=== PATIENT | female | born 1995 ===

== ENCOUNTER 2019-11-27 02:46 | Inpatient (IN) | payer BC, MEDICAID, OTHER ==
[2019-11-27] MEDS ORDERED: hydrALAZINE 20 MG/ML VIAL SLOW IVP PRN ×2 (03:28→10:38)
--- NOTE | 2019-11-27 03:44 | PDOC.FPROB ---
FMR OB H&P: HPI - History of Present Illness Chief Complaint: Contractions, Leakage of fluid Indentification: History of Present Illness: Pt is a 24 yo at 38.5 wks, ITZ 12/06/19, who presents for contractions, leakage of fluid. She states she felt a gush of fluid at midnight saturating her underwear. She has had some leakage since this initial episode. She endorsed red tinged discharge. Contractions started after leakage of fluid. Experiencing contractions between 2-8 mins and have progressively become more painful. She is scheduled for induction 12/07/19. complicated by A1GDM. 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 - Surgical History Sx History: none - Social History Social History: denies tobacco, drugs, alcohol - Family History Family History: mother - DM, HTN father- DM FMR OB H&P: Medications - Current Home Medications: Medication Instructions Recorded Confirmed Type Comb No.42/Folic Acid 1 tab PO DAILY 11/27/19 11/27/19 History [Prena1 Chewable Tablet] Allergies/Adverse Reactions: Allergies Allergy/AdvReac Type Severity Reaction Status Date / Time No Known Allergies Allergy Verified 11/27/19 03:15 FMR OB H&P: ROS - Review of Systems General: denies: fever/chills, weight/appetite/sleep changes Eyes: denies: scotomas, floaters ENT: denies: nasal congestion, rhinorrhea Cardiovascular: denies: chest pain, palpitation, edema Respiratory: denies: cough, congestion, shortness of breath Gastrointestinal: reports: cramping, constipation. denies: nausea, vomiting, diarrhea, bright red blood Genitourinary (Female): reports: vaginal discharge, contractions. denies: dysuria, hematuria Musculoskeletal: denies: pain, tenderness Neurologic: denies: numbness, weakness Integumentary: denies: itching, rash Hematologic/Lymphatic: denies: prolonged or excessive bleeding Psychological: denies: depression, anxiety FMR OB H&P: Vital Signs - Maternal Vital signs: BP 122/76 p64 - Heart Tones Variability: moderate Acceleration: present Category: category 1 FMR OB H&P: Physical Exam - Physical Exam General: NAD, awake, alert and oriented HEENT: normocephalic and atraumatic, EOMI Neck: FROM, no JVD Heart: RRR, normal S1/S2, no murmurs/rubs/gallops, pulses present, no edema General: CTAB, no respiratory distress, good air movement, no wheezing Abdomen: soft, gravid, non-tender Musculoskeletal: normal gait and station, pulses present Neurological: cranial nerves II through XII intact, sensation to pain,touch and proprioception grossly normal Skin: good tugor, capillary refill <2 seconds Lymphatic: no purpura, no petechia Psychiatric: intact recent and remote memory, good judgement and insight - Pelvic Exam SVE: /-1 FMR OB H&P: A/P - Problem List (1) Uterine contractions during Current Visit: Yes Status: Acute Code(s): O62.2 - OTHER UTERINE INERTIA (2) Gestational diabetes Current Visit: Yes Status: Acute Code(s): O24.419 - GESTATIONAL DIABETES MELLITUS IN , UNSP CONTROL (3) Intrauterine Current Visit: Yes Status: Acute Code(s): Z34.90 - ENCNTR FOR SUPRVSN OF NORMAL , UNSP, UNSP TRIMESTER Disposition: Pt is a 24 yo at 38.5 wks, ITZ 12/06/19, who presents for leakage of fluids, contractions: # SROM r/o - amnisure positive # Contractions - lucio q1-2 on monitor, painful - recheck in 2 hours to assess for change # Term IUP - , category 1 strip - Need PNC records - GBS negative # A1GDM - monitor, pt well controlled with diet. Fasting < 95; postprandial < 120. - accuchecks q4hrs Dispo: admit for labor PNC - [facility] Discussion: Date/Time: 11/27/19 0340 This H&P was discussed with Dr. Joaquin who agrees with the above documentation and plan. Addendum - Attending - Attending Attestation Date/Time: 11/27/19 0767 I personally evaluated the patient and discussed the management with Dr. Crowley. I agree with the History, Examination, Assessment and Plan documented above.
[2019-11-27 03:45] LABS: Amnisure Test RUPTURE DETECTED (No Rupture)
[2019-11-27 03:46] LABS: Amnisure Internal Control QC ACCEPTABLE (ACCEPTABLE)
[2019-11-27] MEDS ORDERED: Butorphanol Tartrate 1 MG/ML VIAL SLOW IVP PRN (03:55)
[2019-11-27] MEDS ORDERED: Docusate 100 MG CAP PO PRN (03:55)
[2019-11-27] MEDS ORDERED: Diphenoxylate HCl/Atropine Tablet PO PRN ×2 (03:58)
[2019-11-27] MEDS ORDERED: NS / Oxytocin 40 units/1000ml 1,000 ML IV PRN (03:58)
[2019-11-27] MEDS ORDERED: Misoprostol 200 MCG TAB PR PRN (03:58)
[2019-11-27] MEDS ORDERED: Methylergonovine 0.2 MG/ML VIAL IM PRN (03:58)
[2019-11-27] MEDS ORDERED: Lidocaine 1% (PF) 30 ML VIAL SC PRN (03:58)
[2019-11-27] MEDS ORDERED: Ibuprofen 800 MG TAB PO PRN (03:58)
[2019-11-27] MEDS ORDERED: Carboprost 250 MCG/ML AMP IM PRN (03:58)
[2019-11-27 04:35] VITALS: BMI 27.3
[2019-11-27 04:40] LABS: Hemoglobin 12.6 g/dL (12.0-16.0); Mean Corpuscular HGB CONC 34.2 g/dL (32.0-36.0); Mean Corpuscular Hemoglobin 29.2 pg (27.0-31.0); Mean Corpuscular Volume 85.4 fL (78.0-98.0); Platelet Count 185 thou/uL (130-400); RBC Distribution Width 14.4 % (11.5-14.5); Red Blood Cell (RBC) Count 4.31 mill/uL (4.20-5.40); White Blood Cell (WBC) Count 9.3 thou/uL (4.8-10.8)
[2019-11-27] MEDS ORDERED: Fentanyl 4 mcg/Bup 0.1% Cadd 100 ML ONE (04:46)
[2019-11-27] MEDS ORDERED: Fentanyl 100 MCG/2 ML VIAL ONE (04:58)
[2019-11-27] MEDS: Lactated Ringer's 1,000 ML IV SCH ×2 (05:03→05:35)
[2019-11-27] MEDS ORDERED: Ondansetron PF 4 MG/2 ML Vial IVP PRN ×2 (05:37→10:38)
[2019-11-27] MEDS ORDERED: diphenhydrAMINE 50 MG/ML VIAL IVP PRN (05:37)
[2019-11-27] MEDS ORDERED: Naloxone HCl 0.4 mg/ml Vial IVP PRN ×2 (05:37)
[2019-11-27] MEDS ORDERED: Promethazine HCl 25 MG/ML VIAL IM PRN (05:37)
[2019-11-27] MEDS ORDERED: EPHEDRINE 25 MG/5 ML SYRINGE SLOW IVP PRN (05:37)
[2019-11-27] MEDS ORDERED: Lactated Ringer's 500 ML IV PRN (05:37)
[2019-11-27] MEDS ORDERED: Acetaminophen 325 MG TAB PO PRN (05:37)
[2019-11-27] MEDS ORDERED: Communication Order-Pharmacy FS SCH (05:45)
[2019-11-27] MEDS ORDERED: Fentanyl 4 mcg/Bupivacaine 0.1% Cassette 100 ML EPIDURAL SCH (05:45)
[2019-11-27 06:14] LABS: HBSAg Index 0.17 S/CO (0-0.99); HIV (1/2) Antibody/Antigen NonReactive (NonReactive); Hep B Surf Ag NonReactive S/CO (NonReactive)
[2019-11-27 06:15] LABS: HIV 1/2 INDEX 0.08 S/CO (<1.00)
[2019-11-27] MEDS ORDERED: NS / Oxytocin 40 units/1000ml 1,000 ML ONE (07:24)
[2019-11-27] MEDS ORDERED: Lidocaine 1% (PF) 30 ML VIAL ONE (07:24)
[2019-11-27 08:30] LABS: Syphilis Antibody Nonreactive (Nonreactive); Syphilis Antibody Index 0.02 S/CO (<1.00 Non-Reactive)
[2019-11-27] MEDS ORDERED: Bupivacaine/Epinephrine 0.25% 30 ML VIAL ONE (09:37)
--- NOTE | 2019-11-27 10:01 | PDOC.OPDEL ---
OB Operative/Delivery Note Delivery Dr/Surgeon: Dr. Rickey Quiñonez Assist: Dr. Taniya Joaquin Pre-Delivery Diagnosis: active labor Procedure/Post Delivery Dx: spontaneous vaginal delivery Weeks gestation: 38 (5) - Additional Findings/Plan Placenta delivered: spontaneous Repaired Obstetrical Laceration: periurethral Estimated blood loss: 230 Compilations/Other Findings: Delivering Physician: Dr. Rickey Quiñonez Attending: Dr. Taniya Joaquin Procedure: Spontaneous Vaginal Delivery Anesthesia: epidural, Local for Repair EBL: 230 ml Pre-op Diagnosis: 1. Term intrauterine in labor 2. SROM Post-op Diagnosis: 1. Term intrauterine , delivered Indications: A 24y/o female presents in active labor Delivery Note: This is 24yo F @ 38.5 wks who delivered a viable M infant at 0805. Following an uneventful antepartum course, a vigorous male was delivered in the occipitoanterior position. Anterior shoulder and then remainder of the body delivered. Single nuchal cord. The head was held down and mouth and nares were bulb suctioned. Cord clamped after delayed cord clamping and cut. Pitocin for 3rd stage of labor. Placenta delivered intact with a 3 vessel cord noted. Fundal massage was performed and the fundus was firm. The cervix and vagina were inspected and 2nd degree laceration was noted and repaired with 2-0 vicryl in the usual fashion with good approximation and hemostasis after local anesthetic was injected at site. Infant went to nursery in good condition for routine care. Apgars were 7/9 at 1 & 5 minutes, respectively. Patient tolerated delivery well and went to after routine recovery/care. Post delivery plan: routine recovery Addendum - Attending - Attending Attestation I was present for the entire delivery of a viable . Dr. Ralph was present for the repair of a second degree laceration.
[2019-11-27] MEDS ORDERED: Lanolin Ointment 7 GM TUBE TOP PRN (10:38)
[2019-11-27] MEDS ORDERED: Bisacodyl 10 MG SUPP PR PRN (10:38)
[2019-11-27] MEDS ORDERED: Adacel (T-DAP) 0.5 ML SYRINGE IM ONE (10:38)
[2019-11-27] MEDS ORDERED: Milk Of Magnesia 30 ML UDCUP PO PRN (10:38)
[2019-11-27] MEDS ORDERED: NS / Oxytocin 40 units/1000ml 1,000 ML IV SCH (10:45)
[2019-11-27] MEDS: Ibuprofen 800 MG TAB PO SCH ×2 (15:29→23:01)
[2019-11-27] MEDS: Ferrous Sulfate 325 MG TAB PO SCH (18:28)
[2019-11-27] MEDS ORDERED: Benzocaine-Menthol 82.5 ML CAN TOP PRN (22:17)
[2019-11-27] MEDS: Docusate Calcium (SURFAK) 240 MG CAP PO SCH (23:02)
[2019-11-28] MEDS: Ibuprofen 800 MG TAB PO SCH ×3 (05:38→21:37)
--- NOTE | 2019-11-28 06:05 | PDOC.PP ---
Post Progress Note Post Day #: 1 Subjective: Doing well, pain well controlled. Passing gas, no BM yet. Bleeding improved. Doing well overall. PO intake tolerated: yes Flatus: yes Ambulation: yes Vital Signs (12 hours) Temp Pulse Resp BP Pulse Ox 11/27/19 20:19 98.8 F 80 16 106/57 L 98 Weight Weight 63.503 kg - Physical Examination General: NAD Cardiovascular: RRR Respiratory: non-labored breathing Abdominal: appropriately TTP Neurological: no gross focal deficits Psychiatric: A&Ox3, normal affect Result Diagrams: 11/27/19 04:15 Additional Labs: Post Labs Blood Type O POSITIVE 11/27/19 06:00 Hep Bs Antigen NonReactive S/CO (NonReactive) 11/27/19 04:16 (1) (spontaneous vaginal delivery) Code(s): O80 - ENCOUNTER FOR FULL-TERM UNCOMPLICATED DELIVERY Status: Acute (2) GDM (gestational diabetes mellitus), class A1 Code(s): O24.410 - GESTATIONAL DIABETES MELLITUS IN , DIET CONTROLLED Status: Acute - Assessment/Plan Pt is a 24 yo s/p , PPD1 # s/p , PPD1 with second degree perineal laceration -IBP for pain control, ice pack, dermoplast -Doing well, - with EBM, plans to do this upon discharge. Will get title 19 -CM since first time mom - consulted # A1GDM - 6 week post 2hr GTT #Anemia of -Resolved, Hb 12.1 Dispo: >2 midnights Addendum - Attending - Attending Attestation Date/Time: 11/28/19 1203 I personally evaluated the patient and discussed the management with the team. I agree with the History, Examination, Assessment and Plan documented above with any addition or exceptions noted below.
[2019-11-28] MEDS: Ferrous Sulfate 325 MG TAB PO SCH ×2 (07:32→17:48)
[2019-11-28] MEDS: Docusate Calcium (SURFAK) 240 MG CAP PO SCH ×2 (08:47→21:37)
[2019-11-29] MEDS: Ibuprofen 800 MG TAB PO SCH (05:38)
--- NOTE | 2019-11-29 06:16 | PDOC.PP ---
Post Progress Note Post Day #: 2 Subjective: NAEO. Pain controlled. No issues. Ready for home. PO intake tolerated: yes Flatus: yes Ambulation: yes Vital Signs (12 hours) Temp Pulse Resp BP Pulse Ox 11/28/19 21:35 98.3 F 71 18 103/68 98 Weight Weight 63.503 kg - Physical Examination General: NAD Respiratory: non-labored breathing Abdominal: no distention, appropriately TTP Fundus firm & at: below umbilicus Perineum: 2nd degree lac intact, no dehesicence Neurological: no gross focal deficits Psychiatric: A&Ox3, normal affect Result Diagrams: 11/27/19 04:15 Additional Labs: Post Labs Blood Type O POSITIVE 11/27/19 06:00 Hep Bs Antigen NonReactive S/CO (NonReactive) 11/27/19 04:16 (1) (spontaneous vaginal delivery) Code(s): O80 - ENCOUNTER FOR FULL-TERM UNCOMPLICATED DELIVERY Status: Acute (2) GDM (gestational diabetes mellitus), class A1 Code(s): O24.410 - GESTATIONAL DIABETES MELLITUS IN , DIET CONTROLLED Status: Acute - Assessment/Plan Pt is a 24 yo s/p , PPD2 # s/p , PPD2 with second degree perineal laceration -Pain well controlled with IBP -Doing well, /bottle supplement - with EBM, has breast pump through insurance # A1GDM - 6 week post 2hr GTT #Anemia of -Resolved, Hb 12.1 Dispo: >2 midnights
[2019-11-29] MEDS: Docusate Calcium (SURFAK) 240 MG CAP PO SCH (08:47)
[2019-11-29] MEDS: Ferrous Sulfate 325 MG TAB PO SCH (08:48)
[2019-11-29 10:29] VITALS: BP 109/71; TEMP 98.1
== END 2019-11-29 11:55 | disposition home or self-care (01) | DRG 807 ==
LOC: L&D/OP 02:46 → L&D 04:54 → 3SW 10:22
PROVIDERS: ADMIT Emergency Medicine; ATTEND Emergency Medicine
PROC: 10E0XZZ Delivery of Products of Conception, External Approach (ICD-10-PCS; principal; 2019-11-27)
PROC: 0KQM0ZZ Repair Perineum Muscle, Open Approach (ICD-10-PCS; 2019-11-27)
DX: O24.420 Gestational diabetes mellitus in childbirth, diet controlled (principal); Z37.0 Single live birth; O69.81X0 Labor and delivery complicated by cord around neck, without compression, not applicable or unspecified; O99.02 Anemia complicating childbirth; D64.9 Anemia, unspecified; O70.1 Second degree perineal laceration during delivery; Z3A.38 38 weeks gestation of pregnancy
CPT/HCPCS: 36415; 36416; 51702; 84112; 85027; 86780; 86850; 86900; 86901; 87340; 87389; 99285; J2001; J3010